=== PATIENT | male | born 1975 | race African-American/Black ===

== ENCOUNTER 2016-06-30 17:33 | Emergency (ER) | payer SELFPAY ==
--- NOTE | 2016-06-30 18:29 | RAD ---
FOUR VIEWS OF THE LEFT KNEE 06/30/16 COMPARISON: None. HISTORY: Laceration. FINDINGS: There is no knee joint effusion, displaced fracture, or evidence of dislocation. There is a soft tis manuel lucency on the lateral exam anterior to the superior pole of the left patella suggesting lacerat ion in this region. IMPRESSION: Findings suggesting a laceration anterior to the upper pole of the left patella. No associated fract ure or dislocation. POS: KRANTHI
[2016-06-30] MEDS ORDERED: Lidocaine 1% 20 ML MDV ONE (19:33)
[2016-06-30] MEDS ORDERED: Triple Antibiotic Oint 1 GM Packet ONE (19:53)
== END 2016-06-30 20:03 | disposition home or self-care (01) ==
LOC: NAV ERS 17:33
DX: S81.012A Laceration without foreign body, left knee, initial encounter (principal); I10 Essential (primary) hypertension; W45.8XXA Other foreign body or object entering through skin, initial encounter
CPT/HCPCS: J2001